=== PATIENT | male | born 1995 | race Caucasian/White ===

== ENCOUNTER 2020-07-02 11:50 | Outpatient (CLI) | payer OTHER, SELFPAY ==
--- NOTE | 2020-07-02 | DI.RAD_ITS ---
EXAM: XR CHEST 2V PA LATERAL CLINICAL HISTORY: CHRONIC BRONCHITIS, J42. TECHNIQUE: 2D digital imaging was performed. COMPARISON: No exams were available for comparison FINDINGS: Heart size normal. The mediastinum is not widened. Lungs are clear. No pleural effusions. IMPRESSION: No acute pulmonary findings. DATA REPOSITORY: RADIATION DOSE DELIVERED:
== END 2020-07-02 12:10 ==
PROVIDERS: PCP Pediatrics; Visit Provider Physician Assistant
DX: J42 Unspecified chronic bronchitis (principal)
CPT/HCPCS: 71046